=== PATIENT | male | born 1965 | race African-American/Black ===

== ENCOUNTER 2019-04-07 16:40 | Emergency (ER) | payer MEDICAID ==
[~2019-04-07] VITALS: Ht 195.5 cm; Wt 79.4 kg
== END 2019-04-07 18:54 | disposition home or self-care (01) ==
LOC: ED 16:40
DX: M79.18 Myalgia, other site (principal); M54.6 Pain in thoracic spine; R42 Dizziness and giddiness; I25.2 Old myocardial infarction; F17.200 Nicotine dependence, unspecified, uncomplicated; Z88.0 Allergy status to penicillin; Z91.013 Allergy to seafood; Z91.018 Allergy to other foods

== ENCOUNTER 2019-04-14 18:46 | Inpatient (IN) | payer MEDICAID ==
[~2019-04-14] VITALS: Ht 195.6 cm; Wt 75.4 kg
--- NOTE | ~2019-04-14 | ST ---
[place], [place] EXERCISE STRESS TEST REPORT NAME: BEVERLEY RAYMUNDO UNIT #: [id number] ROOM: [facility] DOCTOR: REBECCA WRIGHT,SEDRICK BIRTHDATE: [birth year] DOS: 04/15/2019 REASON FOR TEST: Elevated troponin and chest pains. PHYSICAL EXAMINATION NECK: Supple. LUNGS: Clear anteriorly. HEART: Regular rhythm. PROTOCOL: Lexiscan protocol. Maximum heart rate 97. Peak blood pressure 110/74. SYMPTOMS: The patient is chest pain free. EKG, there is no ischemia on the Stress EKG, the patient was chest pain free. CONCLUSION: The patient is chest pain free. EKG nonischemic. POST-STRESS COMPLICATIONS: None. The patient received a total of 0.4 mg Lexiscan. SEDRICK FERNANDEZ MD CM:STRESS:EXERCISE STRESS TEST REPORT [id number] SEDRICK FERNANDEZ MD
--- NOTE | ~2019-04-14 | CON ---
[place], [place] REPORT OF CONSULTATION [id number] UNIT #: [id number] ROOM: 502 DOCTOR: SEDRICK FERNANDEZ MD BIRTHDATE: [birth year] DOS: 04/15/2019 REASON FOR CONSULTATION: Chest pain and sinus bradycardia and elevated troponin. HISTORY OF PRESENT ILLNESS: The patient is a 54-year-old -[place] with history of coronary artery disease, myocardial infarction, cardiac stents, "some congenital heart disease" with some intervention done in the past, has presented to the Emergency Room for his left-sided chest pain. This pain came at rest, described as ache, dull pain and pain did relieve with nitroglycerin. He is having this pain on and off for several months, even few years. He had some heart procedure at the age of 6 and also a repeat procedure when he was around 20-year-old, details unknown. He had a history of cardiac stents, last catheterization he said was in July or August of this year. Last year, he wore a LifeVest for a few days and he self-discontinued. He was recommended "possible defibrillator and pacemaker" by his regional project manager, but he refused. He follows with his regional project manager in [place]. Evidently, the patient is visiting his family in [facility] and planning on returning back to [place] within a week. At the time of examination, the patient was pain free. He denies any nausea, vomiting. No shortness of breath. No PND or orthopnea. No palpitations or dizziness. No syncope. No bladder or bowel symptoms, no neurologic symptoms. 10 systems negative except for his intermittent chest pain for a few months, even a few years. PAST MEDICAL HISTORY: 1. Coronary artery disease, status post stents, details unknown. 2. History of congenital heart disease, status post percutaneous procedure at the age of 6 and also the age of 20, details unknown. 3. Hypertension. 4. Possible ischemic cardiomyopathy, details unknown. 5. Asthma. SOCIAL HISTORY: The patient does smoke less than pack a day. Social drinker, does not use illicit drugs. FAMILY HISTORY: Father in accident. Mother from cancer. ALLERGIES: THE PATIENT IS ALLERGIC TO PENICILLIN AND MUSHROOMS AND SHELLFISH DERIVATIVES. HOME MEDICATIONS: Reviewed. PHYSICAL EXAMINATION: VITAL SIGNS: Blood pressure 120/76, pulse 43-55, respiratory rate 18, weight 75 kilos. BMI 19.7. GENERAL: Alert, comfortable, in no acute distress. HEENT: Pupils are round and equal, no jaundice. NECK: Supple, no distended neck veins, no carotid bruit. [place], [place] REPORT OF CONSULTATION NAME: BEVERLEY RAYMUNDO UNIT #: [id number] ROOM: [facility] DOCTOR: SEDRICK FERNANDEZ MD BIRTHDATE: [birth year] CHEST: Symmetrical, nontender. LUNGS: Clear to auscultation bilaterally. HEART: Regular rhythm, no S3, no palpable thrills. ABDOMEN: Benign, nontender. Bowel sounds normal. EXTREMITIES: Showed no edema. Distal pulses palpable. SKIN: Warm and dry. No cyanosis, no clubbing. RECTAL: Deferred. GENITOURINARY: Deferred. NEUROLOGIC: The patient is alert. No focal neurologic deficit. REVIEW OF THE DIAGNOSTIC TESTS: EKG shows sinus rhythm, sinus bradycardia, LV hypertrophy, left atrial enlargement, inferolateral ST inversion. Hemoglobin 13, platelets 198,000. Serum chemistry unremarkable. Troponins are 0.248, 0.240, 0.180. TSH and T4 normal. IMPRESSION: 1. Borderline elevation of troponin suggestive of recent non-ST elevation myocardial infarction, currently pain free. 2. Sinus bradycardia. 3. Coronary artery disease, status post stents, details unknown. 4. Possible ischemic cardiomyopathy. 5. History of heart procedures x 2 for congenital heart disease at the age of 6 and also at the age of 20. 6. Tobacco chewing. RECOMMENDATIONS: 1. The patient is currently chest pain free. He was scheduled for Lexiscan stress test today. 2. For sinus bradycardia, the patient is taking metoprolol 50 mg once daily at home and he is not taking Coreg. 3. Decrease metoprolol 25 mg and start from tomorrow if his pulse is above 50 and his thyroid function tests are normal. 4. Check 2D echo for LV function and valvular function. 5. Try to get his previous records from his regional project manager in [place] and the patient had a CD with him and his will bring it and we will try to extract his records from the CD. 6. Further recommendation based on his stress test and echo findings. 7. For now, continue aspirin, statin, and KAIAL inhibitors and resume beta blockers at low dose as his blood pressure tolerates. 8. The patient counseled to quit chewing tobacco. The above recommendations were discussed with the patient and all questions were answered. [place], [place] REPORT OF CONSULTATION NAME: BEVERLEY RAYMUNDO UNIT #: [id number] ROOM: [facility] DOCTOR: REBECCA WRIGHT,SEDRICK BIRTHDATE: [birth year] SEDRICK FERNANDEZ MD CM:CONSTR:REPORT OF CONSULTATION 39 04/16/19 1116 interface
--- NOTE | ~2019-04-14 | EKG ---
[place], [place] ELECTROCARDIOGRAM REPORT NAME: BEVERLEY RAYMUNDO UNIT #: [id number] ROOM: 502 DOCTOR: HERSON DRAFT REPORT BIRTHDATE: [birth year] [facility] Test Date: 2019-04-15 Test Time: 01:14:38 Pat Name: BEVERLEY RAYMUNDO Department: Room: [facility] Gender: M Youth Pastor: Dwayne Staples : 1965 Requested By: FAYE VIRGEN Order Number: [id number] Reading MD: Carissa Cade Measurements Intervals [place] Rate: 42 P: 79 NE: 166 QRS: 30 QRSD: 99 T: 129 QT: 457 QTc: 382 Interpretive Statements Sinus bradycardia Consider left atrial enlargement LVH with secondary repolarization abnormality Baseline wander in lead(s) V2,V4 Electronically Signed On 04-16-2019 8:14:31 PDT by Carissa Cade CM:EKGRPT:ELECTROCARDIOGRAM REPORT [id number] FAYE BAINS DRAFT REPORT FAYE VIRGEN M.D.
--- NOTE | ~2019-04-14 | EKG ---
[place], [place] ELECTROCARDIOGRAM REPORT NAME: BEVERLEY RAYMUNDO UNIT #: [id number] ROOM: 502 DOCTOR: HERSON DRAFT REPORT BIRTHDATE: [birth year] [facility] Test Date: 2019-04-14 Test Time: 18:50:12 Pat Name: BEVERLEY RAYMUNDO Department: Room: [facility] Gender: M Marker Machine: : 1965 Requested By: FAYE VIRGEN Order Number: [id number] Reading MD: Carissa Cade Measurements Intervals [place] Rate: 44 P: -54 [place]: 152 QRS: 35 QRSD: 95 T: 112 QT: 434 QTc: 372 Interpretive Statements Ectopic atrial bradycardia Anterolateral ST/T changes Electronically Signed On 04-16-2019 8:06:38 PDT by Carissa Cade CM:EKGRPT:ELECTROCARDIOGRAM REPORT [id number] FAYE BAINS DRAFT REPORT FAYE VIRGEN M.D.
--- NOTE | ~2019-04-14 | PR ---
[place], [place] PROGRESS NOTE NAME: BEVERLEY RAYMUNDO [facility] #: [id number] UNIT #: [id number] ROOM: 502 DOCTOR: SEDRICK FERNANDEZ MD BIRTHDATE: [birth year] DOS: 04/16/2019 REASON FOR VISIT: Coronary artery disease, cardiomyopathy. SUBJECTIVE: The patient is feeling better. Denies any chest pain or shortness of breath. He wanted to go home. His stress test yesterday showed fixed defect, no ischemia, EF is 37%. Echo showed EF of 35% to 38%. He denies any PND or orthopnea. REVIEW OF SYSTEMS: Review of 8 systems negative except as mentioned above. PHYSICAL EXAMINATION: RHYTHM STRIPS: The patient in sinus rhythm. VITAL SIGNS: Reviewed. GENERAL: Alert, oriented, in no acute distress. HEAD AND NECK: Neck supple. No distended neck veins, no carotid bruit. CHEST: Symmetrical, nontender. LUNGS: Clear to auscultation bilaterally. HEART: Regular rhythm, no S3. Grade 1/6 systolic murmur. ABDOMEN: Benign, nontender. EXTREMITIES: Showed no edema. Distal pulses palpable. SKIN: Warm and dry. No cyanosis, no clubbing. RECTAL: Deferred. STUDIES: His echo stress test reviewed. IMPRESSION: 1. Borderline elevation of troponin, suggesting non-ST elevation myocardial infarction. Currently, the patient is chest pain free. The stress test showed fixed inferior defect with no reversible ischemia. 2. Coronary artery disease, status post multiple stents per the patient; details unknown. 3. Cardiomyopathy, EF of 37% by stress test, 35% to 38% by 2D echo. 4. History of "cardiac procedure x2 at the age of 6 and at the age of 20;" details unknown. 5. Sinus bradycardia, asymptomatic. RECOMMENDATIONS: 1. Results of the stress test echo were discussed with the patient and his , who is at bedside. 2. I would recommend metoprolol 12.5 mg at this time until he is seen by his international relations professor in [place]. 3. We will continue his rest of the cardiac medications. 4. We can discharge him from the cardiac standpoint. 5. No need for any ICD since the EF is more than 35%. If the patient is not moving back to [place], he can follow up with [facility]. [place], [place] PROGRESS NOTE NAME: BEVERLEY RAYMUNDO UNIT #: [id number] ROOM: [facility] DOCTOR: SEDRICK FERNANDEZ MD BIRTHDATE: [birth year] SEDRICK FERNANDEZ MD CM:TK [id number] SEDRICK FERNANDEZ MD 04/17/19 0549 interface
--- NOTE | ~2019-04-14 | EKG ---
[place], [place] ELECTROCARDIOGRAM REPORT NAME: BEVERLEY RAYMUNDO UNIT #: [id number] ROOM: 502 DOCTOR: HERSON DRAFT REPORT BIRTHDATE: [birth year] [facility] Test Date: 2019-04-14 Test Time: 21:14:22 Pat Name: BEVERLEY RAYMUNDO Department: Room: [facility] Gender: M Lapel Baster: Dwayne Staples : 1965 Requested By: FAYE VIRGEN Order Number: [id number] Reading MD: Carissa Cade Measurements Intervals [place] Rate: 48 P: -58 [place]: 153 QRS: 42 QRSD: 98 T: -49 QT: 465 QTc: 416 Interpretive Statements Sinus or ectopic atrial bradycardia Borderline T abnormalities, inferior leads Minimal ST elevation, anterior leads Baseline wander in lead(s) V1 Electronically Signed On 04-16-2019 8:13:52 PDT by Carissa Cade CM:EKGRPT:ELECTROCARDIOGRAM REPORT 13 FAYE BAINS DRAFT REPORT FAYE VIRGEN M.D.
[2019-04-14 18:52] VITALS: BP 125/85
--- NOTE | 2019-04-14 19:04 | NUR ---
RECEIVED REPORT FROM NALINI
[2019-04-14 19:15] LABS: BASO % 0.6 % (0.0-1.0); EOS # 0.2 10*3/uL (0.0-0.4); EOS % 3.2 % (1.0-4.0); HEMATOCRIT 41.6 % (42.0-52.0); HEMOGLOBIN 13.5 g/dl (14.0-18.0); LYMPH # 1.3 10*3/uL (1.3-4.4); LYMPH % 18.2 % (27.0-41.0); MEAN CELL VOLUME 98.3 fl (80.0-94.0); MEAN CORPUSCULAR HGB 31.9 pg (27.0-31.0); MEAN CORPUSCULAR HGB CONC 32.5 g/dl (33.0-37.0); MEAN PLATELET VOLUME 9.4 fl (9.6-12.3); MONO # 0.8 10*3/uL (0.1-1.0); MONO % 11.4 % (3.0-9.0); NEUT # 4.6 10*3/uL (2.3-7.9); NEUT % 66.5 % (47.0-73.0); PLATELET COUNT AUTOMATED 209 10*3/uL (130-400); RED BLOOD COUNT 4.23 10*6/uL (4.50-5.90); RED CELL DISTRI WIDTH 12.2 % (0-14.5)
[2019-04-14 19:29] LABS: ACT PARTIAL THROMBO TIME 27.6 SECONDS (20.0-32.1)
[2019-04-14 19:32] LABS: ALBUMIN 3.6 gm/dl (3.1-4.5); ALKALINE PHOSPHATASE 54 U/L (45-117); BUN 13 mg/dl (7-24); CHLORIDE 109 mmol/L (98-107); CREATININE 1.01 mg/dL (0.70-1.30); POTASSIUM 4.1 mmol/L (3.5-5.1); SGOT/AST 14 IU/L (3-35); SGPT/ALT 19 U/L (12-78); SODIUM 139 mmol/L (136-145); TOTAL PROTEIN 6.7 gm/dL (6.4-8.2)
--- NOTE | 2019-04-14 19:55 | NUR ---
PT REPORTS INCREASED CHEST PAIN. PHYSICIAN NOTIFIED.
[2019-04-14 20:08] VITALS: BP 133/84
--- NOTE | 2019-04-14 20:28 | NUR ---
A 54, admitted to 5E, under the services of FAUSTINO Dupont DO with a diagnosis of CHEST PAIN, ELEVATED TROP. Chief complaint is CHEST PAIN. Patient arrived via cart from ER. Monitor applied. Initial assessment completed. Vital signs taken and recorded. FAUSTINO DUPONT DO notified of admission to the unit. Orders received. See assessment for past medical history, medications and allergies. Patient and/or family oriented to unit. [facility] visitation policy reviewed. Clothing/patient valuable form completed. E[facility]NEST [place]
[2019-04-14] MEDS ORDERED: PROAIR HFA8.5 GM INH (20:34)
[2019-04-14] MEDS ORDERED: ASPIRIN ADULT L81 M1 PO (20:35)
[2019-04-14] MEDS ORDERED: COREG3.125 MG PO (20:35)
[2019-04-14] MEDS ORDERED: ZESTRIL10 MG PO (20:36)
[2019-04-14] MEDS ORDERED: LIPITOR40 MG PO (20:36)
[2019-04-14] MEDS ORDERED: TOPROL XL50 M1 PO (20:37)
--- NOTE | 2019-04-14 20:55 | NUR ---
NEW CONSULT CALLED TO DR. GABRIEL. NEW ORDER TO KEEP NPO IN CASE OF A STRESS TEST.
[2019-04-14 21:00] VITALS: BP 128/64
--- NOTE | 2019-04-14 21:40 | NUR ---
PATIENT HAVING CHEST PAIN, STATES ITS SEVERE ON THE LEFT SIDE, NON-RADIATING, PATIENT ALSO STATES THAT HIS FINGERS ARE NUMB AND COLD. MORPHINE GIVEN. WILL MONITOR AND REASSESS.
--- NOTE | 2019-04-14 21:50 | NUR ---
PATIENTS FAMILY HAS DISC WITH ALL CARDIAC RECORDS, WILL BRING IN THE MORNING.
--- NOTE | 2019-04-14 22:25 | NUR ---
PATIENT STATED THE MORPHINE WAS EFFECTIVE FOR PAIN.
[2019-04-15] VITALS: BP 124/78
[2019-04-15 00:33] LABS: URINE AMPHETAMINES < 1000 (1000ng/ml); URINE BARBITURATES < 200 (200ng/ml); URINE BENZODIAZEPINES < 200 (200ng/ml); URINE CANNABINOIDS (THC) > 50 (50ng/ml); URINE COCAINE < 300 (300ng/ml); URINE METHADONE < 300 (300ng/ml); URINE OPIATES > 300 (300ng/ml)
[2019-04-15 00:34] LABS: URINE PHENCYCLIDINE < 25 (25ng/ml)
[2019-04-15 07:29] LABS: BASO % 0.5 % (0.0-1.0); EOS # 0.2 10*3/uL (0.0-0.4); EOS % 3.7 % (1.0-4.0); HEMATOCRIT 40.2 % (42.0-52.0); LYMPH # 1.5 10*3/uL (1.3-4.4); LYMPH % 25.3 % (27.0-41.0); MEAN CORPUSCULAR HGB 31.7 pg (27.0-31.0); MEAN CORPUSCULAR HGB CONC 32.3 g/dl (33.0-37.0); MEAN PLATELET VOLUME 9.4 fl (9.6-12.3); MONO # 0.8 10*3/uL (0.1-1.0); MONO % 12.8 % (3.0-9.0); NEUT # 3.4 10*3/uL (2.3-7.9); NEUT % 57.5 % (47.0-73.0); PLATELET COUNT AUTOMATED 198 10*3/uL (130-400); RED CELL DISTRI WIDTH 12.2 % (0-14.5); WHITE BLOOD COUNT 5.9 10*3/uL (4.8-10.8)
[2019-04-15 08:01] LABS: ALBUMIN 3.4 gm/dl (3.1-4.5); BUN 12 mg/dl (7-24); CHLORIDE 107 mmol/L (98-107); POTASSIUM 3.8 mmol/L (3.5-5.1); SODIUM 141 mmol/L (136-145)
[2019-04-15 08:08] LABS: ALKALINE PHOSPHATASE 48 U/L (45-117); CHOLESTEROL 151 mg/dL (<200); CREATININE 1.01 mg/dL (0.70-1.30); FREE T4 1.03 ng/dl (0.76-1.46); HDL CHOLESTEROL 74 mg/dl (40-60); LDL CHOLESTEROL 64 mg/dL (9-159); PHOSPHOROUS 3.6 mg/dL (2.5-4.9); SGOT/AST 17 IU/L (3-35); SGPT/ALT 16 U/L (12-78); TOTAL PROTEIN 6.4 gm/dL (6.4-8.2); TRIGLYCERIDES 64 mg/dl (<150); VLDL CHOLESTEROL 13 mg/dL (6-40)
[2019-04-15 08:36] LABS: VITAMIN D, 25-HYDROXY 13.2 ng/mL (30-100)
--- NOTE | 2019-04-15 08:49 | NUR ---
PATIENT IS IN CARDIAC REHAB
--- NOTE | 2019-04-15 09:48 | NUR ---
INFORMED CONSENT SIGNED FOR LEXISCAN STRESS TEST WITH DR. FERNANDEZ. RESTING EKG SINUS BRADYCARDIA, HR 41, BP 110/72. PULSE OX 100% AND LUNGS CLEAR. COMPLETED ONE MINUTE OF LEXISCAN PROTOCOL RECEIVING LEXISCAN 0.4MG OVER 10 SECONDS. NO ARRHYTHMIAS NOTED AND NO ST CHANGES. PT C/O SOB. LAST RECOVERY HR 81, BP 110/74. WAITING NUCLEAR SCANNING IN STABLE CONDITION.
--- NOTE | 2019-04-15 11:06 | NUR ---
BACK FROM CARDIAC REHAB. DENIES COMPAINTS
[2019-04-15 12:00] VITALS: BP 122/76
--- NOTE | 2019-04-15 12:10 | NUR ---
DR FERNANDEZ HERE AND MEDS ADJUSTED - TRYING TO GET REPORTS ABOUT PREVIOUS CARDIAC TREATMENTS. AWAITING NUCLEAR PORTION OF STRESS TEST
--- NOTE | 2019-04-15 12:45 | NUR ---
Campaign Manager in to talk to patient. Patient states lives at HOME with LATOYA. There are FEW steps in the home. Physician: IN [place] JUST VISITING HERE AND MAY MOVE HERE SO DOES NOT HAVE A PCP YET Pharmacy: [facility] Home health services: NONE Patient's level of ADLs: INDEPENDENT Patient has working utilities: YES DME: [facility] IF NEEDED Follow-up physician's appointment after d/c: WILL FIND MD AND MAKE APPOINTMENT Does patient want to access PORTAL?: NO Discharge plan PT LIVES WITH LATOYA, STATES THEY ARE VISITING HERE FROM [place] TO SEE IF THEY LIKE IT AND MAY MOVE HERE. DENIES ANY NEEDS ON DISCHARGE. WILL CONTINUE TO FOLLOW. WILL HAVE A RIDE HOME PER FIANCE. . [place]
--- NOTE | 2019-04-15 13:15 | NUR ---
SLEEPING AFTER STRESS TEST
[2019-04-15] MEDS ORDERED: PRILOSEC20 M1 PO (15:29)
[2019-04-15] MEDS ORDERED: TUMS X-STR300 MG PO (15:30)
[2019-04-15 16:00] VITALS: BP 123/89
--- NOTE | 2019-04-15 19:00 | NUR ---
REPORT OBTAINED FROM MARIAA-RN. PATIENT RESTING IN BED, EYES CLOSED, NO DISTRESS NOTED, RESP ARE ERND ON ROOM AIR. CALL LIGHT WITHIN REACH
[2019-04-15 20:00] VITALS: BP 128/90
--- NOTE | 2019-04-15 23:48 | NUR ---
24 HR chart check completed.
[2019-04-16] VITALS: BP 120/72
--- NOTE | 2019-04-16 07:21 | NUR ---
Shift chart check completed.
[2019-04-16 08:10] VITALS: BP 104/60
--- NOTE | 2019-04-16 10:14 | NUR ---
DR MCGOWAN ROUNDED
[2019-04-16 12:00] VITALS: BP 133/86
--- NOTE | 2019-04-16 13:07 | NUR ---
REACHED DR MELCHOR - AWARE OF DISCHARGE OK PER CARDIOLOGY
[2019-04-16] MEDS ORDERED: METOPROLOL SUCC25 M2 PO (13:12)
[2019-04-16] MEDS ORDERED: VITAMIN B-12100 MCG PO (13:12)
[2019-04-16] MEDS ORDERED: VITAMIN D32000 UNI1 PO (13:12)
--- NOTE | 2019-04-16 13:13 | NUR ---
PT WILL RETURN HOME WITH FIANCE WITH NO NEW NEEDS ON DISCHARGE. WILL CONTINUE TO FOLLOW.
--- NOTE | 2019-04-16 13:38 | NUR ---
Hep Lock discontinued. Site asymptomatic. Pressure applied. Sterile dressing applied. Discharge instructions reviewed with patient/family. Patient receptive and verbalizes understanding. Follow-up care arranged. Written instructions given to patient/family. AMBULATED OUT SAMUEL WHITE
== END 2019-04-16 13:52 | disposition home or self-care (01) | DRG 198 ==
LOC: ED 18:46 → EDHOLD 19:54 → 5E 19:54
PROVIDERS: Emergency Medicine; Internal Medicine; ADMIT Internal Medicine
PROC: 4A02XM4 Measurement of Cardiac Total Activity, External Approach (ICD-10-PCS; principal; 2019-04-15)
PROC: 3E073KZ Introduction of Other Diagnostic Substance into Coronary Artery, Percutaneous Approach (ICD-10-PCS; 2019-04-15)
DX: R07.89 Other chest pain (principal); I42.9 Cardiomyopathy, unspecified; R74.8 Abnormal levels of other serum enzymes; R00.1 Bradycardia, unspecified; D53.9 Nutritional anemia, unspecified; I25.10 Atherosclerotic heart disease of native coronary artery without angina pectoris; F17.220 Nicotine dependence, chewing tobacco, uncomplicated; E83.41 Hypermagnesemia; I11.0 Hypertensive heart disease with heart failure; E53.8 Deficiency of other specified B group vitamins; I50.22 Chronic systolic (congestive) heart failure; E87.8 Other disorders of electrolyte and fluid balance, not elsewhere classified; J45.909 Unspecified asthma, uncomplicated; Z71.6 Tobacco abuse counseling; Z82.49 Family history of ischemic heart disease and other diseases of the circulatory system; Z88.0 Allergy status to penicillin; Z91.013 Allergy to seafood; Z91.018 Allergy to other foods; I25.2 Old myocardial infarction; Z95.5 Presence of coronary angioplasty implant and graft; Z80.9 Family history of malignant neoplasm, unspecified; Z79.899 Other long term (current) drug therapy; Z79.82 Long term (current) use of aspirin

== ENCOUNTER → 2019-05-02 | Outpatient (CLI) | payer MEDICAID ==
[~2019-05-02] MED LIST: ASPIRIN ADULT L81 M1 PO; COREG3.125 MG PO; LIPITOR40 MG PO; METOPROLOL SUCC25 M2 PO; PRILOSEC20 M1 PO; PROAIR HFA8.5 GM INH; TOPROL XL50 M1 PO; TUMS X-STR300 MG PO; VITAMIN B-12100 MCG PO; VITAMIN D32000 UNI1 PO; ZESTRIL10 MG PO
== END | disposition home or self-care (01) ==
LOC: RESCLI 00:22
DX: Z12.11 Encounter for screening for malignant neoplasm of colon (principal); I25.10 Atherosclerotic heart disease of native coronary artery without angina pectoris; I10 Essential (primary) hypertension; E55.9 Vitamin D deficiency, unspecified; E53.8 Deficiency of other specified B group vitamins; J45.20 Mild intermittent asthma, uncomplicated; K21.9 Gastro-esophageal reflux disease without esophagitis; F17.290 Nicotine dependence, other tobacco product, uncomplicated; Z76.89 Persons encountering health services in other specified circumstances; Z79.899 Other long term (current) drug therapy

== ENCOUNTER → 2019-06-25 | Day surgery (SDC) | payer MEDICAID ==
[~2019-06-25] VITALS: Ht 195.5 cm; Wt 74.8 kg
[2019-06-25 11:01] VITALS: BP 130/87
[2019-06-25 12:41] VITALS: BP 137/96
[2019-06-25 12:55] VITALS: BP 136/87
[2019-06-25 13:11] VITALS: BP 134/95
== END | disposition home or self-care (01) ==
LOC: SDC 06-23 10:15
DX: Z12.11 Encounter for screening for malignant neoplasm of colon (principal); D12.8 Benign neoplasm of rectum; D12.3 Benign neoplasm of transverse colon; K29.50 Unspecified chronic gastritis without bleeding; I11.0 Hypertensive heart disease with heart failure; I50.9 Heart failure, unspecified; I25.10 Atherosclerotic heart disease of native coronary artery without angina pectoris; K21.9 Gastro-esophageal reflux disease without esophagitis; F41.9 Anxiety disorder, unspecified; F32.9 Major depressive disorder, single episode, unspecified; I25.2 Old myocardial infarction; Z98.890 Other specified postprocedural states